=== PATIENT | female | born 1980 | race Caucasian/White ===

== ENCOUNTER → 2018-02-27 | Outpatient (CLI) | payer BC ==
--- NOTE | 2018-02-27 15:26 | Diagnostic Imaging Report ---
PROCEDURE: MRI left joint lower extremity without contrast. TECHNIQUE: Multiplanar, multisequence non contrast-enhanced MRI of the left lower extremity was accomplished. INDICATION: Fell off horse, knee pain. COMPARISON: There are no prior studies available for comparison. FINDINGS: On the STIR coronal series, there is a 1.3 x 2.7 cm area of increased signal in the subarticular region of the midportion of the lateral tibial plateau. There are similar appearing but much smaller and less intense areas of abnormal signal along the lateral aspect of the lateral femoral condyle. I suspect these findings are related to bone edema from a recent contusion and/or microfracture. There is also a similar appearing but less well-defined area of abnormal signal along the posterior margin of the inferior pole of the patella. This area measures approximately 1.0 x 1.6 cm. I do suspect that there is a nondisplaced fracture in this area with associated bone edema. The infrapatellar tendon near its attachment to the proximal tibia is also somewhat indistinct and may be partially torn. For the most part, the infrapatellar tendon seems to be intact, however. There is also at least a moderate amount of fluid within the knee joint, but there is no clear evidence for lipohemarthrosis. No other acute bony abnormality is appreciated. There is no abnormal signal arising from the medial meniscus to suggest a tear. There is a small area of altered signal involving the anterior horn of the lateral meniscus. This is suspicious for a tear. The posterior margin of the medial collateral ligament as it courses by the medial femoral condyle is also seen somewhat indistinct and may be partially torn. There is edema/inflammation of the soft tissues in this area as well. The anterior and posterior cruciate ligaments, the quadriceps tendon, the fibular collateral ligament, the biceps femoris tendon, the iliotibial band, and the medial and lateral retinacula are intact. There is also generalized soft tissue edema about the knee joint. IMPRESSION: 1. The prominent areas of altered signal involving the lateral aspect of the proximal tibia and lateral femoral condyle are most likely due to bone edema from recent contusions and/or microfractures. There is also bone edema due to a nondisplaced fracture of the inferior pole of the patella. 2. The findings are also suspicious for partial tears of the medial collateral ligament and the attachment of the infrapatellar tendon to the tibia. There also appears to be a small tear of the anterior horn of the lateral meniscus. 3. The other major ligaments and tendons and the medial meniscus are intact. 4. There is a moderate joint effusion present, and there is mild soft tissue edema about the knee joint. Dictated by: Dictated on workstation # [id number]
== END ==
LOC: RAD 13:03
PROVIDERS: ATTEND Nurse Practitioner Family
DX: S82.002A Unspecified fracture of left patella, initial encounter for closed fracture (principal); S80.02XA Contusion of left knee, initial encounter; V80.010A Animal-rider injured by fall from or being thrown from horse in noncollision accident, initial encounter
CPT/HCPCS: 73721